=== PATIENT | female | born 1985 | race Two or more races ===

== ENCOUNTER → 2020-09-26 08:18 | Outpatient (BNVA) | payer OTHER, SELFPAY | PROVIDERS: PCP Internal Medicine; Referring Provider Internal Medicine; Visit Provider Physician Assistant | DX: K90.49 Malabsorption due to intolerance, not elsewhere classified (principal); E66.9 Obesity, unspecified; Z68.38 Body mass index [BMI] 38.0-38.9, adult; Z98.84 Bariatric surgery status; Z71.3 Dietary counseling and surveillance | CPT/HCPCS: 99214 ==

== ENCOUNTER → 2021-07-13 14:48 | Outpatient (BNVA) | payer OTHER, SELFPAY | PROVIDERS: PCP Internal Medicine; Visit Provider Physician Assistant | DX: R63.5 Abnormal weight gain (principal); I10 Essential (primary) hypertension; E11.9 Type 2 diabetes mellitus without complications; G47.33 Obstructive sleep apnea (adult) (pediatric); E78.00 Pure hypercholesterolemia, unspecified; K21.9 Gastro-esophageal reflux disease without esophagitis; K90.49 Malabsorption due to intolerance, not elsewhere classified; Z98.84 Bariatric surgery status | CPT/HCPCS: 99212 ==

== ENCOUNTER → 2021-08-15 08:19 | Outpatient (BNVA) | payer OTHER, SELFPAY | PROVIDERS: Visit Provider Dietitian, Registered | DX: E66.01 Morbid (severe) obesity due to excess calories (principal); Z68.41 Body mass index [BMI] 40.0-44.9, adult; Z98.84 Bariatric surgery status | CPT/HCPCS: 97803 ==

== ENCOUNTER → 2021-08-21 14:55 | Outpatient (BNVA) | payer OTHER, SELFPAY | PROVIDERS: Referring Provider Dietitian, Registered; Visit Provider Physician Assistant Surgical | DX: E66.01 Morbid (severe) obesity due to excess calories (principal); Z98.84 Bariatric surgery status | CPT/HCPCS: 99212 ==

== ENCOUNTER → 2022-01-10 08:30 | Outpatient (BNVA) | payer OTHER, SELFPAY | PROVIDERS: Visit Provider Dietitian, Registered | DX: E66.01 Morbid (severe) obesity due to excess calories (principal); Z68.41 Body mass index [BMI] 40.0-44.9, adult | CPT/HCPCS: 97803 ==

== ENCOUNTER → 2022-01-31 08:13 | Outpatient (BNVA) | payer OTHER, SELFPAY | PROVIDERS: Referring Provider Surgery; Visit Provider Dietitian, Registered | DX: E66.01 Morbid (severe) obesity due to excess calories (principal); Z68.43 Body mass index [BMI] 50.0-59.9, adult | CPT/HCPCS: 97803 ==

== ENCOUNTER → 2022-03-06 08:22 | Outpatient (BNVA) | payer OTHER, SELFPAY | PROVIDERS: Referring Provider Surgery; Visit Provider Dietitian, Registered | DX: Z13.89 Encounter for screening for other disorder (principal) ==

== ENCOUNTER → 2023-02-22 15:44 | Outpatient (BNVA) | payer OTHER, SELFPAY | PROVIDERS: Visit Provider Physician Assistant Surgical | DX: E66.01 Morbid (severe) obesity due to excess calories (principal); Z98.84 Bariatric surgery status; Z68.42 Body mass index [BMI] 45.0-49.9, adult | CPT/HCPCS: 99212 ==

== ENCOUNTER 2023-03-08 10:10 | Outpatient (REF) | payer OTHER, SELFPAY ==
[2023-03-08 10:25] LABS: MANUAL DIFF FLAG NO
[2023-03-08 11:08] LABS: Basophils Percent Auto 0.5 % (0-2); Eosinophils Absolute Auto 0.1 X10*3/uL (0.0-0.4); Eosinophils Percent Auto 1.7 % (0-4); Hematocrit 33.7 % (37.0-47.0); Hemoglobin 10.5 g/dl (12.0-16.0); Imm Gran Abs Auto 0.02 X10*3/uL (0.00-0.03); Imm Gran Pct Auto 0.3 % (0.0-0.4); Lymphocytes Absolute Auto 1.4 X10*3/uL (1.2-4.9); Lymphocytes Percent Auto 23.8 % (20-40); Mean Corpuscular HGB Conc 31.2 g/dl (31.0-35.0); Mean Corpuscular Volume 83.4 fL (80.0-98.0); Mean Platelet Volume 9.6 fL (9.4-12.3); Monocytes Absolute Auto 0.4 X10*3/uL (0.1-1.2); Monocytes Percent Auto 6.8 % (2-11); Neutrophils Absolute Auto 3.9 x10*3/uL (2.0-8.3); Neutrophils Percent Auto 66.9 % (45-73); Platelet Count 358 X10*3/uL (160-400); Red Blood Count 4.04 X10*6/uL (4.20-5.50); Red Cell Distribution Width 14.2 % (11.0-16.0); White Blood Count 5.8 X10*3/uL (4.8-10.8)
[2023-03-08 11:14] LABS: Estimated Average Glucose 108 mg/dL; Hemoglobin A1c % 5.4 %
[2023-03-08 11:38] LABS: Alanine Aminotransferase 13 U/L (0-31); Albumin Level 4.1 g/dL (3.5-5.0); Alkaline Phosphatase 68 U/L (39-117); Anion Gap 14 (12-20); Aspartate Amino Transferase 15 U/L (5-31); Bilirubin Total 0.5 mg/dL (0.0-1.0); Blood Urea Nitrogen 13 mg/dL (9-16); C Reactive Protein 0.58 mg/dL (< or = 0.50); Calcium 9.4 mg/dL (8.4-10.2); Carbon Dioxide 27 mmol/L (22-29); Chloride 105 mmol/L (96-108); Cholesterol 141 mg/dL; Estimated Glomerular Filt Rate > 60; Glucose Random 92 mg/dL (60-115); HDL Cholesterol 42 mg/dL; Iron 38 mcg/dL (30-160); LDL Cholesterol Calculated 80 mg/dl; Percent Iron Saturation 11 % (15-50); Potassium 4.9 mmol/L (3.3-5.1); Sodium 141 mmol/L (135-145); Total Iron Binding Capacity 360 mcg/dL (228-428); Triglycerides 95 mg/dL; Unsaturated Iron Binding 322 ug/dL
[2023-03-08 12:09] LABS: Ferritin 6 ng/mL (10-122); Folate 15.1 ng/mL (> or = 4.0); Insulin 9 uU/mL (2-29); TSH reflex Free T4 1.14 uIU/mL (0.32-4.0); Vitamin B12 642 pg/mL (200-900); Vitamin D 25-OH Total 29.9 ng/mL (>30)
[2023-03-11 21:49] LABS: PTHI 41 pg/mL (16-77)
[2023-03-12 15:39] LABS: Zinc 69 mcg/dL (60-130)
[2023-03-14 05:18] LABS: Vitamin A 44 mcg/dL (38-98)
[2023-03-16 12:09] LABS: Vitamin B1 7 nmol/L (8-30)
== END 2023-03-08 10:11 | disposition home or self-care (01) ==
LOC: HO.LAB 10:10
PROVIDERS: Visit Provider Physician Assistant Surgical
DX: Z98.84 Bariatric surgery status (principal)
CPT/HCPCS: 36415; 80053; 80061; 82306; 82607; 82728; 82746; 83036; 83525; 83540; 83970; 84425; 84443; 84590; 84630; 85025; 86140

== ENCOUNTER 2024-05-25 14:35 | Outpatient (AMB) | payer OTHER, SELFPAY ==
--- NOTE | 2024-05-25 14:31 | MHC.OFFVISWM ---
VS Expanded 05/25/24 14:38 Height 5 ft 4 in Weight 250 lb BMI 42.9 Intake Visit Reasons: (TV) PO 11/26/2019 Allergies cranberry [CRANBERRY] Allergy (Unknown, Verified 02/22/23 15:54) RASH penicillamine Allergy (Unknown, Verified 02/22/23 15:54) rash Penicillins [PENICILLINS] Allergy (Unknown, Verified 02/22/23 15:54) RASH Cranberry Allergy (Unknown, Uncoded 08/21/21 15:18) rash Medication List - Last Reconciled 05/25/24 by RENZO Marks cholecalciferol (vitamin D3) 25 mcg PO DAILY hydrochlorothiazide 25 mg PO DAILY iron,carbonyl-vitamin C 65 mg iron- 125 mg (Vitron-C) 1 tab PO BEDTIME thiamine HCl (vitamin B1) 100 mg PO DAILY HPI Comments Details: This?is a?38?yo female who is s/p LSG 11/26/2019. Weight at last visit on 02/22/2023 was 281.4 pounds with a BMI of 48.3, weight today is 250 pounds, representing a 31.4 pound weight loss with a BMI today of .? No complaints of nausea, emesis, abdominal pain or reflux, or constipation. Has started seeing a community therapist which she finds helpful. Present meal plan includes: given at last visit 2 Premier protein RTD shakes 1 meal/snack of 2 eggs +/- veg, or GY/CC +/- berries/fruit 1 meal of 4oz protein and 4oz veg/salad (or 2oz healthy carb in place of 2oz veg) Pt reports she has been fasting, 1 protein shake per day with coffee, ends fast at 12pm. Pt unsure whether she gets enough protein every day Exercise routine includes: none; does like to walk outside [facility] [place] Medical History Hypertension Malabsorption due to intolerance, not elsewhere classified Morbid obesity Obesity (BMI 30-39.9) Surgical History Delivery by section H/O tubal ligation S/P laparoscopic sleeve gastrectomy Family History Mother Epilepsia Anxiety Father Depression Diabetes Hypertension Schizophrenia Sister Bipolar 1 disorder Brother No problems noted. Brother No problems noted. Social History Alcohol intake: former Patient Tobacco Use Status: Never used Tobacco Telehealth Telehealth Telehealth Platform: Telephone Location of provider rendering services: other Location of patient: address on file Patient Identification confirmed using: Name, : Yes Telehealth method: voice only Patient verbally consented to treatment: Yes Patient verbally consented to billing insurance company: Yes Patient informed of any privacy concerns related to visit: Yes Minutes spent on Phone/Video with Pt.: 15 Assessment & Plan Assessment & Plan (1) Morbid obesity: Code(s): E66.01 - Morbid (severe) obesity due to excess calories Category: Medical (2) S/P laparoscopic sleeve gastrectomy: Comment: DOS 11/26/19, Dr. Perales Code(s): Z98.84 - Bariatric surgery status Category: Medical Plan Discussed getting adequate protein intake even if pt is practicing fasting. Discussed exercise as a way to help with intermediate manager weight management as well as possibly help depression/anxiety symptoms. Labs ordered. RTC 6 months, pt to text me with any questions/concerns between visits. Patient is morbidly obese and is not considered stable at this time. I spent a total of 30 minutes reviewing/updating records, examining the patient and counseling the patient on weight management as detailed above. Orders: Orders Insulin Today Z98.84 - Bariatric surgery status Hemoglobin A1c Today Z98.84 - Bariatric surgery status C Reactive Protein Today Z98.84 - Bariatric surgery status Vitamin B1 Today Z98.84 - Bariatric surgery status Vitamin A Today Z98.84 - Bariatric surgery status TSH reflex Free T4 Today Z98.84 - Bariatric surgery status Vitamin D 25-OH Total Today Z98.84 - Bariatric surgery status Complete Blood Count Auto Diff Today Z98.84 - Bariatric surgery status Lipid Panel Today Z98.84 - Bariatric surgery status IRON PROFILE Today Z98.84 - Bariatric surgery status Comprehensive Met. Panel Today Z98.84 - Bariatric surgery status Vitamin B12 and Folate Today Z98.84 - Bariatric surgery status Zinc Today Z98.84 - Bariatric surgery status Ferritin Today Z98.84 - Bariatric surgery status
[2024-05-25 14:38] VITALS: BMI 42.9
== END 2024-05-25 14:58 | disposition home or self-care (01) ==
LOC: HO.HBS 14:35
PROVIDERS: Visit Provider Physician Assistant Surgical
DX: E66.01 Morbid (severe) obesity due to excess calories (principal); Z98.84 Bariatric surgery status
CPT/HCPCS: 99214

== ENCOUNTER → 2024-05-25 14:35 | Outpatient (BNVA) | payer OTHER, SELFPAY | PROVIDERS: Visit Provider Physician Assistant Surgical ==

== ENCOUNTER 2024-11-16 11:16 | Outpatient (AMB) | payer OTHER, SELFPAY ==
--- NOTE | 2024-11-16 11:13 | A.OFFVIS_ITS ---
VS Expanded 11/16/24 11:17 Height 5 ft 4 in Weight 271 lb BMI 46.5 Intake Visit Reasons: TELEPHONE PO LSG 11/26/2019 Allergies cranberry [CRANBERRY] Allergy (Unknown, Verified 02/22/23 15:54) RASH penicillamine Allergy (Unknown, Verified 02/22/23 15:54) rash Penicillins [PENICILLINS] Allergy (Unknown, Verified 02/22/23 15:54) RASH Cranberry Allergy (Unknown, Uncoded 08/21/21 15:18) rash Medication List - Last Reconciled 11/16/24 by RENZO Marks cholecalciferol (vitamin D3) 25 mcg PO DAILY hydrochlorothiazide 25 mg PO DAILY iron,carbonyl-vitamin C 65 mg iron- 125 mg (Vitron-C) 1 tab PO BEDTIME thiamine HCl (vitamin B1) 100 mg PO DAILY HPI Comments Details: This?is a?39?yo female who is s/p LSG 11/26/2019. Presents for 5 year post op visit. Weight at last visit on 05/25/2024 was 250 pounds with a BMI of 42.9, weight today is 271 pounds, representing a 21 pound weight gain with a BMI today of 46.5.? No complaints of nausea, emesis, abdominal pain or reflux, or constipation. Wants a new meal plan. Has been seeing her therapist. Present meal plan includes: given at last visit 2 Premier protein RTD shakes 1 meal/snack of 2 eggs +/- veg, or GY/CC +/- berries/fruit 1 meal of 4oz protein and 4oz veg/salad (or 2oz healthy carb in place of 2oz veg) ends up eating asnack which could be anything Pt reports she has been fasting, 1 protein shake per day with coffee, ends fast at 12pm. Pt unsure whether she gets enough protein every day Exercise routine includes: has not been going to gym [facility] Medical History Hypertension Malabsorption due to intolerance, not elsewhere classified Morbid obesity Obesity (BMI 30-39.9) Surgical History Delivery by section H/O tubal ligation S/P laparoscopic sleeve gastrectomy Family History Mother Epilepsia Anxiety Father Depression Diabetes Hypertension Schizophrenia Sister Bipolar 1 disorder Brother No problems noted. Brother No problems noted. Social History Alcohol intake: former Patient Tobacco Use Status: Never used Tobacco Telehealth Telehealth Telehealth Platform: Telephone Location of provider rendering services: practice address Location of patient: address on file Patient Identification confirmed using: Name, : Yes Telehealth method: voice only Patient verbally consented to treatment: Yes Patient verbally consented to billing insurance company: Yes Patient informed of any privacy concerns related to visit: Yes Minutes spent on Phone/Video with Pt.: 15 Assessment & Plan Assessment & Plan (1) S/P laparoscopic sleeve gastrectomy: Comment: [facility] 11/26/19, Dr. Perales Code(s): Z98.84 - Bariatric surgery status Category: Surgical (2) Morbid obesity: Code(s): E66.01 - Morbid (severe) obesity due to excess calories Category: Medical Plan Gave pt [facility] ele access. She will create a plan and reach out to me with any questions regarding the ele. 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 Had ordered labs at last visit, pt did not have drawn, reminded her to have done. RTC 3 months. I spent a total of 30 minutes reviewing/updating records, examining the patient and counseling the patient on weight management as detailed above.
[2024-11-16 11:17] VITALS: BMI 46.5
== END 2024-11-16 11:38 | disposition home or self-care (01) ==
LOC: HO.HBS 11:16
PROVIDERS: Visit Provider Physician Assistant Surgical
DX: E66.01 Morbid (severe) obesity due to excess calories (principal); E66.813 Obesity, class 3; Z68.42 Body mass index [BMI] 45.0-49.9, adult; Z98.84 Bariatric surgery status
CPT/HCPCS: 99214; G2211